=== PATIENT | female | born 1995 | race Caucasian/White ===

== ENCOUNTER 2018-06-28 15:38 | Emergency (ER) | payer OTHER ==
[2018-06-28 15:52] VITALS: BP 111/72; PULSE 69; TEMP 98.6; BMI 25.8
[2018-06-28] MEDS ORDERED: RANITIDINE HCL 150 MG TABLET (FP) PO ONE (16:19)
[2018-06-28] MEDS ORDERED: predniSONE 20 MG TABLET (UD) PO ONE (16:19)
[2018-06-28] MEDS ORDERED: diphenhydrAMINE HCL 25 MG CAPSULE (FP) PO ONE ×2 (16:19→16:21)
[2018-06-28] MEDS ORDERED: RANITIDINE HCL 150 MG TABLET (FP) ONE (16:21)
[2018-06-28] MEDS ORDERED: predniSONE 20 MG TABLET (UD) ONE (16:22)
--- NOTE | 2018-06-28 16:57 | PDOC ---
History of Present Illness - General Chief Complaint: Rash Stated Complaint: Allergic Reaction Time Seen by Provider: 06/28/18 16:13 History Source: Patient Exam Limitations: No Limitations Past History - Past Medical History Allergies/Adverse Reactions: Allergies Allergy/AdvReac Type Severity Reaction Status Date / Time No Known Allergies Allergy Verified 06/28/18 15:52 Home Medications: Ambulatory Orders Famotidine [Pepcid] 20 mg PO DAILY #5 tablet 06/28/18 Prednisone [Deltasone] 40 mg PO DAILY #10 tablet 06/28/18 Asthma: No Cancer: No Cardiac Disorders: No COPD: No Diabetes: No HTN: No Seizures: No Thyroid Disease: No - Suicide/Smoking/Psychosocial Hx Smoking History: Never smoked Have you smoked in the past 12 months: No Information on smoking cessation initiated: No Hx Alcohol Use: No Drug/Substance Use Hx: No Substance Use Type: None Hx Substance Use Treatment: No *Physical Exam - Vital Signs Last Vital Signs Temp Pulse Resp BP Pulse Ox 98.6 F 69 16 111/72 100 06/28/18 15:50 06/28/18 15:50 06/28/18 15:50 06/28/18 15:50 06/28/18 15:50 - Physical Exam General Appearance: No: Apparent Distress HEENT: positive: LASHAWN, Other (No oropharygneal swelling, no angioedema). negative: Muffled/Hoarse voice Respiratory/Chest: positive: Lungs Clear, Normal Breath Sounds. negative: Respiratory Distress Cardiovascular: positive: Regular Rhythm, Regular Rate, S1, S2. negative: Murmur Integumentary: positive: Hives, Rash (diffuse urticarial rash along abdomen, BUE , BLE). negative: Cyanotic, Cold, Clammy, Petechiae, Ecchymosis, Bruising Neurologic: positive: Fully Oriented, Alert, Normal Mood/Affect Moderate Sedation - Procedure Monitoring Vital Signs: Procedure Monitoring Vital Signs Temperature 98.6 F 06/28/18 15:50 Pulse Rate 69 06/28/18 15:50 Respiratory Rate 16 06/28/18 15:50 Blood Pressure 111/72 06/28/18 15:50 O2 Sat by Pulse Oximetry (%) 100 06/28/18 15:50 ED Treatment Course - Medications Given in the ED: ED Medications Discontinued Medications Generic Name Dose Route Start Last Admin Trade Name Freq PRN Reason Stop Dose Admin Diphenhydramine HCl 50 mg 06/28/18 16:19 06/28/18 16:25 Benadryl - PO 06/28/18 16:20 50 mg ONCE ONE Administration Prednisone 60 mg 06/28/18 16:19 06/28/18 16:25 Deltasone - PO 06/28/18 16:20 60 mg ONCE ONE Administration Ranitidine HCl 150 mg 06/28/18 16:19 06/28/18 16:25 Zantac - PO 06/28/18 16:20 150 mg ONCE ONE Administration Medical Decision Making - Medical Decision Making 23 y/o F with no sig pmh presents with generalized itchy rash along body x 1 week. Rash initially started on hands and then spread all over body. Has been taking Benadryl, which does improve it a bit, but still has not completely gone away. Last took Benadryl yesterday. Denies fever, sob, cp, abd pain, n/v/d, recent travel/hiking/camping, use of new products, taking any new meds or trying any new food. Rash likely allergic in nature given urticarial appearance, though unclear cause Plan: Benadryl, Prednisone, Zantac, reassess 06/28/18 16:54 On reassessment, patient notes improvement in rash with less swelling and clearing of skin Stable for d/c; advised f/u with PCP Return precautions discussed 06/28/18 17:22 *DC/Admit/Observation/Transfer Diagnosis at time of Disposition: Urticaria - Discharge Dispostion Disposition: HOME Condition at time of disposition: Improved Decision to Admit order: No - Prescriptions Prescriptions: Famotidine [Pepcid] 20 mg PO DAILY #5 tablet Prednisone [Deltasone] 40 mg PO DAILY #10 tablet - Referrals Referrals: TREVA HERNANDEZ [Primary Care Provider] - 3 days - Patient Instructions Printed Discharge Instructions: DI for Hives Additional Instructions: Thank you for choosing [facility]. It was a pleasure taking care of you. You were seen here for allergic reaction Take Prednisone and Pepcid as prescribed Take Benadryl as needed for itching Follow-up with your PCP for further evaluation of your symptoms Return to the Emergency Department if your symptoms worsen or persist, you have fever, shortness of breath, chest pain, severe abdominal pain, vomiting, feel sensation of throat closing, have tongue swelling or other concerning symptoms. - Post Discharge Activity
== END 2018-06-28 17:29 | disposition home or self-care (01) ==
LOC: JERFT 15:38
DX: R21 Rash and other nonspecific skin eruption (principal)
CPT/HCPCS: 99281-25

== ENCOUNTER 2018-09-02 17:12 | Emergency (ER) | payer SELFPAY ==
--- NOTE | 2018-09-02 17:38 | PDOC ---
Rapid Medical Evaluation Time Seen by Provider: 09/02/18 17:37 Medical Evaluation: Allergies Allergy/AdvReac Type Severity Reaction Status Date / Time No Known Allergies Allergy Verified 06/28/18 15:52 09/02/18 17:37 I have performed a brief in-person evaluation of this patient. The patient presents with a chief complaint of:L great toe pain after trauma 3 days ago Pertinent physical exam findings:weight bears I have ordered the following:x ray The patient will proceed to the ED for further evaluation. Discharge Disposition - Diagnosis Toe pain, left - Referrals - Patient Instructions - Post Discharge Activity
[2018-09-02 17:39] VITALS: BP 111/73; PULSE 83; TEMP 98.7; BMI 28.8
--- NOTE | 2018-09-02 19:34 | PDOC ---
History of Present Illness - General Chief Complaint: Injury Stated Complaint: BROKEN TOE Time Seen by Provider: 09/02/18 17:37 History Source: Patient Exam Limitations: Clinical Condition - History of Present Illness Initial Comments: 09/02/18 19:37 Patient with no significant past medical history of present with complaint of left big toe pain which is worse with ambulation after hitting the big toe while on the cell phone and walk-in to the sidewalk hitting to sidewalk. Patient denies fall. Patient denies any other symptoms Timing/Duration: 1-3 hours Past History - Past Medical History Allergies/Adverse Reactions: Allergies Allergy/AdvReac Type Severity Reaction Status Date / Time No Known Allergies Allergy Verified 09/02/18 17:39 Home Medications: Ambulatory Orders Ibuprofen 800 mg PO Q8H PRN #20 tablet 09/02/18 Asthma: No Cancer: No Cardiac Disorders: No COPD: No Diabetes: No HTN: No Seizures: No Thyroid Disease: No - Suicide/Smoking/Psychosocial Hx Smoking History: Never smoked Have you smoked in the past 12 months: No Information on smoking cessation initiated: No Hx Alcohol Use: No Drug/Substance Use Hx: No Substance Use Type: None Hx Substance Use Treatment: No Review of Systems - Review of Systems Able to Perform ROS?: Yes Is the patient limited Hungarian proficient: No Constitutional: No: Weakness HEENTM: No: Symptoms Reported Respiratory: No: Symptoms reported Cardiac (ROS): No: Symptoms Reported ABD/GI: No: Symptoms Reported Musculoskeletal: Yes: See HPI, Joint Pain (left great toe), Joint Swelling ( left great toe). No: Muscle Weakness Neurological: No: Numbness, Paresthesia, Tingling, Weakness All Other Systems: Reviewed and Negative *Physical Exam - Vital Signs Last Vital Signs Temp Pulse Resp BP Pulse Ox 98.7 F 83 19 111/73 100 09/02/18 17:37 09/02/18 17:37 09/02/18 17:37 09/02/18 17:37 09/02/18 17:37 - Physical Exam Comments: 09/02/18 19:40 GENERAL: Well developed, well nourished. Awake and alert. in mild acute distress. CARDIOVASCULAR: Regular rate and rhythm. No murmurs, rubs, or gallops. PULMONARY: No evidence of respiratory distress. Lungs clear to auscultation bilaterally. No wheezing, rales or rhonchi. ABDOMINAL: Soft. Non-tender. Non-distended. No rebound or guarding. No organomegaly. Normoactive bowel sounds MUSCULOSKELETAL : Moderate tenderness to proximal phalange of left great toe with mild swelling to great toe. No visible deformity to toe . SKIN: Warm and dry. Normal capillary refill. . NEUROLOGICAL: Alert, awake, appropriate. No motor deficits in the lower extremities. Gait is normal without ataxia. PSYCHIATRIC: Cooperative. Good eye contact. Appropriate mood and affect. General Appearance: Yes: Nourished, Appropriately Dressed, Mild Distress Moderate Sedation - Procedure Monitoring Vital Signs: Procedure Monitoring Vital Signs Temperature 98.7 F 09/02/18 17:37 Pulse Rate 83 09/02/18 17:37 Respiratory Rate 19 09/02/18 17:37 Blood Pressure 111/73 09/02/18 17:37 O2 Sat by Pulse Oximetry (%) 100 09/02/18 17:37 Medical Decision Making - Medical Decision Making 09/02/18 19:38 Patient with no significant past medical history of present with complaint of left big toe pain which is worse with ambulation after hitting the big toe while on the cell phone and walk-in to the sidewalk hitting to sidewalk. Patient denies fall. Patient denies any other symptoms. Exam significant for moderate tenderness to proximal phalanx of left great toe with mild swelling. X-ray of toes shows questionable nondisplaced fracture to proximal phalanx of left great toe. Toe sena taped with adhesive bandage. Patient given postop boots. Patient is stable for discharge on ibuprofen for pain with podiatry follow-up *DC/Admit/Observation/Transfer Diagnosis at time of Disposition: Toe pain, left Toe fracture, left Qualifiers: Encounter type: initial encounter Toe: great toe Fracture type: closed Phalanx : proximal Fracture alignment: nondisplaced Qualified Code(s): S92.415A - Nondisplaced fracture of proximal phalanx of left great toe, initial encounter for closed fracture - Discharge Dispostion Disposition: HOME Condition at time of disposition: Stable Decision to Admit order: No - Prescriptions Prescriptions: Ibuprofen 800 mg PO Q8H PRN #20 tablet PRN Reason: Pain - Referrals Referrals: TREVA HERNANDEZ [Primary Care Provider] - Gonzalo Lane MD [Staff Physician] - - Patient Instructions Printed Discharge Instructions: DI for Toe Fracture Additional Instructions: Keep sena tape on for the next 5-7 days. Use a prescribed postop boots open toe shoes for toe fracture. Follow-up referred podiatry for reassessment in a few days - Post Discharge Activity
== END 2018-09-02 19:40 | disposition home or self-care (01) ==
LOC: JERFT 17:12
PROC: 2W3VXYZ Immobilization of Left Toe using Other Device (ICD-10-PCS; principal; 2018-09-02)
DX: M79.675 Pain in left toe(s) (principal); W22.01XA Walked into wall, initial encounter; Y93.89 Activity, other specified; Y92.89 Other specified places as the place of occurrence of the external cause; S92.415A Nondisplaced fracture of proximal phalanx of left great toe, initial encounter for closed fracture
CPT/HCPCS: 73660-TC-LT-FY; 99281-25

== ENCOUNTER 2019-09-03 00:22 | Emergency (ER) | payer OTHER ==
[2019-09-03 01:47] VITALS: TEMP 98.5; BMI 27.4
--- NOTE | 2019-09-03 02:45 | PDOC ---
Attending Attestation - Resident Resident Name: Cody Jackson - ED Attending Attestation I have performed the following: I have examined & evaluated the patient, The case was reviewed & discussed with the resident, I agree w/resident's findings & plan, Exceptions are as noted - HPI HPI: 09/16/19 19:51 See resident HPI - Physicial Exam PE: 09/16/19 19:53 Agree with exam as documented by resident - Medical Decision Making 09/16/19 19:53 24F with nbnb n/v a/w sore throat, eval for strep, RPA, IRON CASTER unlikely f/u swab symptomatic tx re-eval strep neg, patient symptomatically improved dc
--- NOTE | 2019-09-03 02:45 | PDOC ---
History of Present Illness - General Chief Complaint: Sore Throat Stated Complaint: HOT FLASHES,SORETHROAT Time Seen by Provider: 09/03/19 02:02 History Source: Patient Exam Limitations: No Limitations - History of Present Illness Initial Comments: 24 yo F with no past medical history presents to the emergency department with sore throat with associative nausea and vomiting for 2 days. Per the patient, she had less than 3 episodes of vomiting which we described as non billious and non bloody. The patient has had associative sore throat pain. Denies recent travels and recent sick contacts. Per the patient, she denies taking an anti- pyretic at home prior to presentation. Denies the following: fever, chills, SOB , chest pain, abdominal pain, dysuria, hematuria, diarrhea, and leg pain/ swelling. Past History - Past Medical History Allergies/Adverse Reactions: Allergies Allergy/AdvReac Type Severity Reaction Status Date / Time No Known Allergies Allergy Verified 09/03/19 01:45 Home Medications: Ambulatory Orders Ibuprofen 800 mg PO Q8H PRN #20 tablet 09/02/18 Asthma: No Cancer: No Cardiac Disorders: No COPD: No Diabetes: No HTN: No Seizures: No Thyroid Disease: No - Psycho Social/Smoking Cessation Hx Smoking History: Never smoked Have you smoked in the past 12 months: No Information on smoking cessation initiated: No Hx Alcohol Use: No Drug/Substance Use Hx: No Substance Use Type: None Hx Substance Use Treatment: No Review of Systems - Review of Systems Able to Perform ROS?: Yes Is the patient limited French proficient: No Constitutional: No: Chills, Diaphoresis, Fever, Weakness HEENTM: Yes: Throat Pain. No: Eye Pain, Ear Pain, Nose Pain, Mouth Pain Respiratory: No: Cough, Shortness of Breath, Hemoptysis Cardiac (ROS): No: Chest Pain, Lightheadedness, Palpitations, Chest Tightness ABD/GI: Yes: Nausea, Vomiting. No: Constipated, Diarrhea, Rectal Bleeding, Tarry Stools : No: Burning, Dysuria, Hematuria Musculoskeletal: No: Back Pain, Joint Pain, Neck Pain Integumentary: No: Bruising, Erythema, Rash Neurological: No: Headache Psychiatric: No: Change in Appetite Endocrine: No: Unexplained Weight Loss *Physical Exam - Vital Signs Last Vital Signs Temp Pulse Resp BP Pulse Ox 98.5 F 102 H 20 129/78 98 09/03/19 01:45 09/03/19 01:45 09/03/19 01:45 09/03/19 01:45 09/03/19 01:45 - Physical Exam General Appearance: Yes: Nourished, Appropriately Dressed. No: Apparent Distress, Intoxicated HEENT: positive: EOMI, LASHAWN, Normal Voice, TMs Normal, Pharyngeal Erythema, Tonsillar Erythema, Hearing Grossly Normal. negative: Pale Conjunctivae, Scleral Icterus (R), Scleral Icterus (L), Muffled/Hoarse voice, Tonsillar Exudate, Nasal Congestion, Rhinorrhea, Excessive drooling Neck: positive: Trachea midline, Supple. negative: Tender, Lymphadenopathy (R) , Lymphadenopathy (L), Tender lateral, Tender midline Respiratory/Chest: positive: Lungs Clear, Normal Breath Sounds. negative: Chest Tender, Respiratory Distress, Accessory Muscle Use, Crackles, Rales, Rhonchi, Stridor, Wheezing Cardiovascular: positive: Regular Rhythm, Regular Rate, S1, S2. negative: Systolic Murmur Gastrointestinal/Abdominal: positive: Normal Bowel Sounds, Flat, Soft. negative : Tender, Distended, Guarding, Rebound Lymphatic: negative: Adenopathy Musculoskeletal: positive: Normal Inspection. negative: CVA Tenderness, Vertebral Tenderness Extremity: positive: Normal Capillary Refill, Normal Inspection, Normal Range of Motion. negative: Tender Integumentary: positive: Normal Color, Dry, Warm Neurologic: positive: Alert, Normal Mood/Affect Medical Decision Making - Medical Decision Making 24 yo F with no past medical history presents to the emergency department with sore throat with associative nausea and vomiting for 2 days. Per the patient, she had less than 3 episodes of vomiting which we described as non billious and non bloody. Initial vitals; Initial Vital Signs Temp Pulse Resp BP Pulse Ox 98.5 F 102 H 20 129/78 98 09/03/19 01:45 09/03/19 01:45 09/03/19 01:45 09/03/19 01:45 09/03/19 01:45 Work up: patient presents with N/V with associative sore throat. likely the patient is having symptoms consistent with viral gastroenteritis. Patient declined to have test, stating she does not think she is and does not need the test On the physical exam, the patient is noted to have tonsilar erythema and swelling. Will give dexamethasone for inflammation reduction and tylenol for pain reduction. patient was given zofran for nasuea control Laboratory Tests 09/03/19 04:19 Group A Strep Rapid Negative Repeat HR is 98 bpm. Patient was found to not have strep throat. patient states she feels "much better" after the administration of the medications. The patient will be discharged with PMD follow up. Patient agrees to the plan and understands it. Patient was able to tolerate PO Discharge - Discharge Information Problems reviewed: Yes Clinical Impression/Diagnosis: Vomiting Condition: Stable Disposition: HOME - Admission No - Follow up/Referral Referrals: [facility] [place] [Provider Group] - Patient Discharge Instructions Patient Printed Discharge Instructions: DI for Vomiting -- Adult Additional Instructions: You were seen in the emergency department for vomiting. Please follow up with your primary medical doctor for follow up care and management within 1 week after discharge. Please return to the emergency department if you have worsening symptoms or new concerning symptoms. - Post Discharge Activity
[2019-09-03] MEDS ORDERED: ACETAMINOPHEN 325 MG TABLET (FP) PO ONE (02:46)
[2019-09-03] MEDS ORDERED: ONDANSETRON *ODT* 4 MG TABLET SL ONE (02:46)
[2019-09-03] MEDS ORDERED: DEXAMETHASONE LIQUID 0.5 MG/5 ML PO ONE (02:46)
[2019-09-03] MEDS ORDERED: DEXAMETHASONE SOD PHOSPHATE 10 MG/1 ML VIAL ONE (03:26)
[2019-09-03] MEDS ORDERED: ACETAMINOPHEN 325 MG TABLET (FP) ONE (03:26)
[2019-09-03 05:36] VITALS: BP 126/78; PULSE 98
== END 2019-09-03 05:36 | disposition home or self-care (01) ==
LOC: JER 00:22
DX: R11.10 Vomiting, unspecified (principal)
CPT/HCPCS: 87070; 87880; 99283-25; Q0162

== ENCOUNTER 2021-10-21 11:03 | Emergency (ER) | payer SELFPAY ==
[2021-10-21 11:20] VITALS: TEMP 97.9; BMI 33.3
[2021-10-21] MEDS ORDERED: KETOROLAC TROMETHAMINE 30 MG/1 ML VIAL IM ONE (11:42)
[2021-10-21] MEDS ORDERED: ACETAMINOPHEN 500 MG TABLET (FP) PO ONE (11:42)
[2021-10-21] MEDS ORDERED: DEXAMETHASONE LIQUID 0.5 MG/5 ML PO ONE (11:42)
[2021-10-21] MEDS ORDERED: DEXAMETHASONE SOD PHOSPHATE 10 MG/1 ML VIAL ONE (11:46)
[2021-10-21] MEDS ORDERED: KETOROLAC TROMETHAMINE 30 MG/1 ML VIAL ONE (11:47)
[2021-10-21] MEDS ORDERED: ACETAMINOPHEN 500 MG TABLET (FP) ONE (11:47)
[2021-10-21] MEDS ORDERED: PENICILLIN G BENZATHINE 1,200,000 UNIT/2 ML PFS IM ONE ×2 (12:30→13:10)
[2021-10-21] MEDS ORDERED: FAMOTIDINE 20 MG TABLET PO ONE (12:34)
[2021-10-21 13:10] VITALS: BP 113/75
[2021-10-21] MEDS ORDERED: FAMOTIDINE 20 MG TABLET ONE (13:10)
[2021-10-21 13:39] VITALS: PULSE 95
[2021-10-22 20:07] LABS: SARS-CoV-2 NAA Not Detected (Not Detected)
== END 2021-10-21 13:55 | disposition home or self-care (01) ==
LOC: JER 11:03 → JERFT 11:03
PROC: 3E023GC Introduction of Other Therapeutic Substance into Muscle, Percutaneous Approach (ICD-10-PCS; principal; 2021-10-21)
DX: J03.90 Acute tonsillitis, unspecified (principal)
CPT/HCPCS: 87651; 87804; 99284-25; C9803-CS; U0003; U0005

== ENCOUNTER 2022-01-20 17:24 | Emergency (ER) | payer OTHER ==
[2022-01-20 17:29] VITALS: BP 117/70; PULSE 90; TEMP 98.8; BMI 28.2
[2022-01-20] MEDS ORDERED: PENICILLIN V POTASSIUM 500 MG TABLET PO ONE (17:54)
[2022-01-20] MEDS ORDERED: IBUPROFEN 600 MG TABLET (FP) PO ONE ×2 (17:58→18:09)
== END 2022-01-20 18:20 | disposition home or self-care (01) ==
LOC: JERFT 17:24
DX: K04.7 Periapical abscess without sinus (principal)
CPT/HCPCS: 99283-25

== ENCOUNTER 2022-12-31 16:35 | Emergency (ER) | payer OTHER ==
[2022-12-31 16:41] VITALS: BP 117/70; PULSE 73; RESP 18; TEMP 98.2; BMI 28.2
== END 2022-12-31 18:42 | disposition home or self-care (01) ==
LOC: JERFT 16:35
DX: K08.89 Other specified disorders of teeth and supporting structures (principal); R68.84 Jaw pain; R22.0 Localized swelling, mass and lump, head; K04.7 Periapical abscess without sinus
CPT/HCPCS: 99283-25